=== PATIENT | male | born 1950 | race Caucasian/White ===

== ENCOUNTER 2020-12-27 18:19 | Observation (INO) | payer MEDICARE, OTHER ==
[2020-12-27 19:17] LABS: BASO % 0.9 % (0-2.0); EOS % 0.9 % (0-4.5); HEMATOCRIT 38.2 % (35.4-49); HEMOGLOBIN 13.2 GM/dL (11.7-16.9); LYMPH % 17.4 % (8-40); MCH 30.5 pg (25.7-33.7); MCHC 34.5 g/dl (32.0-35.9); MEAN CELL VOLUME 88.4 fl (80-96); MEAN PLT VOLUME 9.8 fl (7.5-11.1); MONO % 6.3 % (3.8-10.2); NEUT % 74.5 % (42.8-82.8); PLATELET COUNT 213 K/MM3 (134-434); RBC 4.32 M/mm3 (4.00-5.60); RDW 12.7 % (11.9-15.9)
[2020-12-27] MEDS ORDERED: dilTIAZem HCL 125 MG/25 ML - 25 ML VIAL ONE (19:41)
[2020-12-27 19:43] LABS: CHLORIDE 102 mmol/L (98-107); SODIUM 135 mmol/L (136-145)
[2020-12-27 19:45] LABS: ALBUMIN 4.1 g/dl (3.4-5.0); ANION GAP 10 MMOL/L (8-16); BLOOD UREA NITROGEN 14.4 mg/dL (7-18); CALCIUM 9.1 mg/dL (8.5-10.1); CO2 23 mmol/L (21-32); MAGNESIUM 1.8 mg/dL (1.8-2.4)
[2020-12-27 19:47] LABS: GLUCOSE,RANDOM 130 mg/dL (74-106)
[2020-12-27 19:49] LABS: CREATININE 1.1 mg/dL (0.55-1.3); PHOSPHOROUS 3.6 mg/dL (2.5-4.9); SGOT/AST 44 U/L (15-37); SGPT/ALT 36 U/L (13-61)
[2020-12-27 19:50] LABS: BILIRUBIN,TOTAL 0.9 mg/dL (0.2-1); TOT PROT 7.6 g/dl (6.4-8.2)
[2020-12-27 19:52] LABS: ALK PHOS 62 U/L (45-117)
[2020-12-27] MEDS ORDERED: dilTIAZem HCL 50 MG/10 ML - 10 ML VIAL IVPUSH ONE (20:11)
[2020-12-27] MEDS ORDERED: dilTIAZem HCL 30 MG TABLET ONE (20:30)
[2020-12-27] MEDS ORDERED: SODIUM CHLORIDE 1,000 ML IV STA (20:30)
[2020-12-27 20:53] LABS: INR 1.08 (0.83-1.09); PROTHROMBIN TIME (PATIENT) 13.3 SEC (9.7-13.0)
[2020-12-27 20:55] LABS: ACTIVATED PTT 33.4 SECONDS (25.2-36.5)
[2020-12-27] MEDS ORDERED: ENOXAPARIN NA (PORCINE) 40 MG/0.4 ML DISP.SYRIN SQ ONE (22:00)
[2020-12-27] MEDS ORDERED: ENOXAPARIN NA (PORCINE) 80 MG/0.8 ML DISP.SYRIN SQ ONE (22:04)
[2020-12-28 01:10] LABS: URINE APPEARANCE CLEAR; URINE BILIRUBIN NEGATIVE (NEGATIVE); URINE COLOR YELLOW; URINE GLUCOSE (UA) NEGATIVE (NEGATIVE); URINE KETONE NEGATIVE (NEGATIVE); URINE LEUK ESTERASE NEGATIVE (NEGATIVE); URINE NITRITE NEGATIVE (NEGATIVE); URINE PROTEIN NEGATIVE (NEGATIVE); URINE UROBILINOGEN 0.2 mg/dL (0.2-1.0)
[2020-12-28] MEDS ORDERED: dilTIAZem HCL 30 MG TABLET PO SCH (06:00)
[2020-12-28] MEDS ORDERED: dilTIAZem HCL 30 MG TABLET ONE ×2 (06:01→17:40)
[2020-12-28 06:46] LABS: HEMATOCRIT 37.6 % (35.4-49); HEMOGLOBIN 12.9 GM/dL (11.7-16.9); MCH 30.6 pg (25.7-33.7); MCHC 34.3 g/dl (32.0-35.9); MEAN CELL VOLUME 89.2 fl (80-96); MEAN PLT VOLUME 9.8 fl (7.5-11.1); PLATELET COUNT 218 K/MM3 (134-434); RBC 4.21 M/mm3 (4.00-5.60); RDW 12.9 % (11.9-15.9); WHITE BLOOD COUNT 4.4 K/mm3 (4.0-10.0)
[2020-12-28 07:10] LABS: ALBUMIN 3.5 g/dl (3.4-5.0); BLOOD UREA NITROGEN 13.8 mg/dL (7-18); CALCIUM 8.7 mg/dL (8.5-10.1); MAGNESIUM 2.2 mg/dL (1.8-2.4)
[2020-12-28 07:14] LABS: BILIRUBIN,TOTAL 1.1 mg/dL (0.2-1); CREATININE 0.9 mg/dL (0.55-1.3); PHOSPHOROUS 3.4 mg/dL (2.5-4.9)
[2020-12-28] MEDS: KCL 10 MEQ IVPB 10 MEQ/100 ML INFUS.BAG IVPB SCH ×2 (08:10→09:10)
[2020-12-28] MEDS: INSULIN SLIDING SCALE (NOVOLOG) 1 VIAL SQ SCH ×4 (08:30→22:23)
[2020-12-28] MEDS ORDERED: KCL 10 MEQ IVPB 10 MEQ/100 ML INFUS.BAG IVPB ONE ×2 (08:32→09:45)
[2020-12-28] MEDS ORDERED: ASPIRIN 81 MG CHEWABLE TABLETS ONE (09:46)
[2020-12-28] MEDS ORDERED: PANTOPRAZOLE 40 MG TABLET ONE (09:47)
[2020-12-28] MEDS ORDERED: ENOXAPARIN NA (PORCINE) 80 MG/0.8 ML DISP.SYRIN SQ ONE (09:47)
[2020-12-28] MEDS ORDERED: ASPIRIN 81 MG CHEWABLE TABLETS PO SCH (10:00)
[2020-12-28] MEDS ORDERED: PANTOPRAZOLE SODIUM 40 MG VIAL IVPUSH SCH (10:00)
[2020-12-28] MEDS: PANTOPRAZOLE 40 MG TABLET PO SCH (10:04)
[2020-12-28] MEDS: ENOXAPARIN NA (PORCINE) 80 MG/0.8 ML DISP.SYRIN SQ SCH ×2 (10:04→22:23)
[2020-12-28] MEDS: dilTIAZem HCL 30 MG TABLET PO SCH ×2 (12:18→18:02)
[2020-12-28] MEDS: ATORVASTATIN CA 40 MG TABLET (FP) PO SCH (22:23)
[2020-12-29 01:03] VITALS: BMI 30.9
[2020-12-29] MEDS: INSULIN SLIDING SCALE (NOVOLOG) 1 VIAL SQ SCH ×4 (06:30→21:24)
[2020-12-29 07:35] LABS: EOS % 3.5 % (0-4.5); HEMATOCRIT 38.7 % (35.4-49); HEMOGLOBIN 13.3 GM/dL (11.7-16.9); LYMPH % 42.9 % (8-40); MCH 30.8 pg (25.7-33.7); MCHC 34.4 g/dl (32.0-35.9); MEAN CELL VOLUME 89.6 fl (80-96); MONO % 8.4 % (3.8-10.2); NEUT % 44.2 % (42.8-82.8); PLATELET COUNT 199 K/MM3 (134-434); RBC 4.32 M/mm3 (4.00-5.60); RDW 12.6 % (11.9-15.9); WHITE BLOOD COUNT 4.8 K/mm3 (4.0-10.0)
[2020-12-29 07:51] LABS: ALBUMIN 3.6 g/dl (3.4-5.0); BLOOD UREA NITROGEN 16.1 mg/dL (7-18); CALCIUM 8.8 mg/dL (8.5-10.1); MAGNESIUM 2.1 mg/dL (1.8-2.4)
[2020-12-29 07:54] LABS: PHOSPHOROUS 3.5 mg/dL (2.5-4.9)
[2020-12-29 07:55] LABS: BILIRUBIN,TOTAL 1.3 mg/dL (0.2-1); TOT PROT 7.2 g/dl (6.4-8.2)
[2020-12-29] MEDS ORDERED: REGADENOSON 0.4 MG/5 ML PRE-FILLED SYRINGE IVPUSH ONE ×2 (09:45→09:50)
[2020-12-29] MEDS: PANTOPRAZOLE 40 MG TABLET PO SCH (12:08)
[2020-12-29] MEDS: APIXABAN 5 MG TABLET PO SCH ×2 (12:08→21:22)
[2020-12-29] MEDS: ATORVASTATIN CA 40 MG TABLET (FP) PO SCH (21:22)
[2020-12-29] MEDS ORDERED: INSULIN (NOVOLOG) ASPART 100 UNITS/ML 10ML VIAL ONE (21:24)
[2020-12-30] MEDS: INSULIN SLIDING SCALE (NOVOLOG) 1 VIAL SQ SCH ×3 (06:14→17:28)
[2020-12-30] MEDS: PANTOPRAZOLE 40 MG TABLET PO SCH (09:49)
[2020-12-30] MEDS: APIXABAN 5 MG TABLET PO SCH (09:49)
[2020-12-30] MEDS ORDERED: VALSARTAN 160 MG TABLET PO SCH (10:00)
[2020-12-30 20:57] VITALS: BP 140/79; PULSE 65; TEMP 98.3
[2020-12-30] MEDS: ATORVASTATIN CA 40 MG TABLET (FP) PO SCH (21:13)
== END 2020-12-30 21:55 | disposition short-term general hospital (02) ==
LOC: JER 18:19 → INTOOBSV 23:09 → JERBED 23:09 → UNDOADMOB 23:09 → JERBED 12-28 19:53 → J4W 12-28 19:53 → JERBED 12-29 09:25 → J4W 12-29 09:25
PROVIDERS: ADMIT Student in an Organized Health Care Education/Training Program; ATTEND Student in an Organized Health Care Education/Training Program
PROC: 3E023GC Introduction of Other Therapeutic Substance into Muscle, Percutaneous Approach (ICD-10-PCS; principal; 2020-12-29)
PROC: 3E033GC Introduction of Other Therapeutic Substance into Peripheral Vein, Percutaneous Approach (ICD-10-PCS; 2020-12-29)
PROC: 3E0337Z Introduction of Electrolytic and Water Balance Substance into Peripheral Vein, Percutaneous Approach (ICD-10-PCS; 2020-12-29)
DX: I48.91 Unspecified atrial fibrillation (principal); R00.2 Palpitations; K27.9 Peptic ulcer, site unspecified, unspecified as acute or chronic, without hemorrhage or perforation; R00.0 Tachycardia, unspecified; E78.5 Hyperlipidemia, unspecified; R07.9 Chest pain, unspecified; R20.8 Other disturbances of skin sensation; R10.13 Epigastric pain; E66.9 Obesity, unspecified; Z68.31 Body mass index [BMI] 31.0-31.9, adult; Z29.9 Encounter for prophylactic measures, unspecified; I10 Essential (primary) hypertension; E11.9 Type 2 diabetes mellitus without complications; Z91.011 Allergy to milk products; R42 Dizziness and giddiness; Z98.49 Cataract extraction status, unspecified eye; Z87.738 Personal history of other specified (corrected) congenital malformations of digestive system
CPT/HCPCS: 36415; 71045-TC-FY; 78452-TC; 80053; 80061; 81003; 82272; 82550; 82962; 83036; 83721; 83735; 84100; 84443; 84484; 85025; 85027; 85610; 85730; 93005; 93010; 93017; 93306-TC; 96361; 96365; 96372; 96375; 99285-25; A9502; C9803; G0378; J2785; U0003; U0005

== ENCOUNTER 2021-06-22 08:58 | Emergency (ER) | payer OTHER ==
[2021-06-22 09:15] VITALS: BMI 29.9
[2021-06-22] MEDS ORDERED: LIDOCAINE 5% TOPICAL PATCH TP ONE (12:51)
[2021-06-22] MEDS ORDERED: ACETAMINOPHEN 325 MG TABLET (FP) PO ONE (12:51)
[2021-06-22 13:00] LABS: BASO % 1.1 % (0-2.0); EOS % 1.1 % (0-4.5); HEMATOCRIT 40.4 % (35.4-49); HEMOGLOBIN 14.1 GM/dL (11.7-16.9); LYMPH % 31.7 % (8-40); MCH 30.4 pg (25.7-33.7); MCHC 34.9 g/dl (32.0-35.9); MEAN CELL VOLUME 87.1 fl (80-96); MEAN PLT VOLUME 8.6 fl (7.5-11.1); MONO % 5.8 % (3.8-10.2); NEUT % 60.3 % (42.8-82.8); PLATELET COUNT 234 10^3/uL (134-434); RBC 4.64 M/mm3 (4.00-5.60); WHITE BLOOD COUNT 4.6 K/mm3 (4.0-10.0)
[2021-06-22 13:06] LABS: INR 1.22 (0.83-1.09); PROTHROMBIN TIME (PATIENT) 14.3 SEC (9.7-13.0)
[2021-06-22 13:08] LABS: ACTIVATED PTT 39.7 SECONDS (25.2-36.5)
[2021-06-22] MEDS ORDERED: LIDOCAINE 5% TOPICAL PATCH ONE (13:12)
[2021-06-22] MEDS ORDERED: ACETAMINOPHEN 325 MG TABLET (FP) ONE (13:12)
[2021-06-22 13:23] LABS: CHLORIDE 102 mmol/L (98-107); SODIUM 135 mmol/L (136-145)
[2021-06-22 13:25] LABS: CALCIUM 9.5 mg/dL (8.5-10.1)
[2021-06-22 13:26] LABS: ALBUMIN 3.9 g/dl (3.4-5.0); ANION GAP 9 MMOL/L (8-16); BLOOD UREA NITROGEN 9.5 mg/dL (7-18); CO2 24 mmol/L (21-32); GLUCOSE,RANDOM 125 mg/dL (74-106)
[2021-06-22 13:29] LABS: CREATININE 0.9 mg/dL (0.55-1.3); SGOT/AST 22 U/L (15-37); SGPT/ALT 25 U/L (13-61)
[2021-06-22 13:31] VITALS: BP 166/84; PULSE 78; TEMP 98
[2021-06-22 13:31] LABS: BILIRUBIN,TOTAL 0.9 mg/dL (0.2-1); TOT PROT 8.5 g/dl (6.4-8.2)
[2021-06-22 13:32] LABS: ALK PHOS 75 U/L (45-117)
[2021-06-22] MEDS ORDERED: LIDOCAINE PATCH REMOVAL MC ONE (22:00)
== END 2021-06-22 14:44 | disposition home or self-care (01) ==
LOC: JER 08:58
DX: M54.50 Low back pain, unspecified (principal); X50.0XXA Overexertion from strenuous movement or load, initial encounter; Y93.E2 Activity, laundry
CPT/HCPCS: 36415; 71046-TC-FY; 80053; 84484; 85025; 85610; 85730; 93005; 93010; 99285-25

== ENCOUNTER 2021-11-12 11:52 | Observation (INO) | payer OTHER ==
[2021-11-12 12:31] VITALS: BMI 29.0
[2021-11-12] MEDS ORDERED: MECLIZINE HCL 25 MG TABLET (FP) PO ONE ×2 (13:22→20:16)
[2021-11-12] MEDS ORDERED: MECLIZINE HCL 25 MG TABLET (FP) ONE ×2 (14:09→20:27)
[2021-11-12 16:03] LABS: INR 1.3 (0.83-1.09)
[2021-11-12 16:05] LABS: BASO % 0.6 % (0-2.0); EOS % 2.2 % (0-4.5); HEMATOCRIT 37.4 % (35.4-49); HEMOGLOBIN 13.1 GM/dL (11.7-16.9); LYMPH % 25.5 % (8-40); MCH 30.5 pg (25.7-33.7); MEAN PLT VOLUME 9.5 fl (7.5-11.1); MONO % 6.5 % (3.8-10.2); NEUT % 65.2 % (42.8-82.8); PLATELET COUNT 186 10^3/uL (134-434); RBC 4.29 M/mm3 (4.00-5.60); RDW 13.1 % (11.9-15.9); WHITE BLOOD COUNT 4.4 K/mm3 (4.0-10.0)
[2021-11-12 16:06] LABS: ACTIVATED PTT 39.1 SECONDS (25.2-36.5)
[2021-11-12 16:13] LABS: CALCIUM 9.5 mg/dL (8.5-10.1)
[2021-11-12 16:14] LABS: BLOOD UREA NITROGEN 12.9 mg/dL (7-18)
[2021-11-12 16:16] LABS: CREATININE 0.8 mg/dL (0.55-1.3)
[2021-11-12 16:18] LABS: BILIRUBIN,TOTAL 0.9 mg/dL (0.2-1); TOT PROT 7.6 g/dl (6.4-8.2)
[2021-11-12 21:47] LABS: URINE APPEARANCE CLEAR; URINE BILIRUBIN NEGATIVE (NEGATIVE); URINE COLOR YELLOW; URINE GLUCOSE (UA) NEGATIVE (NEGATIVE); URINE KETONE NEGATIVE (NEGATIVE); URINE LEUK ESTERASE NEGATIVE (NEGATIVE); URINE NITRITE NEGATIVE (NEGATIVE); URINE PROTEIN NEGATIVE (NEGATIVE); URINE UROBILINOGEN 0.2 mg/dL (0.2-1.0)
[2021-11-12] MEDS ORDERED: MECLIZINE HCL 25 MG TABLET (FP) PO SCH (22:00)
[2021-11-12] MEDS ORDERED: APIXABAN 5 MG TABLET ONE (23:06)
[2021-11-12] MEDS: APIXABAN 5 MG TABLET PO SCH (23:15)
[2021-11-12] MEDS: SODIUM CHLORIDE 1,000 ML IV SCH (23:15)
[2021-11-13] MEDS: MECLIZINE HCL 25 MG TABLET (FP) PO SCH ×3 (06:06→21:42)
[2021-11-13 08:57] LABS: EOS % 3.8 % (0-4.5); HEMATOCRIT 36.8 % (35.4-49); HEMOGLOBIN 12.6 GM/dL (11.7-16.9); LYMPH % 36.5 % (8-40); MCH 29.9 pg (25.7-33.7); MCHC 34.1 g/dl (32.0-35.9); MEAN CELL VOLUME 87.6 fl (80-96); MEAN PLT VOLUME 9.5 fl (7.5-11.1); NEUT % 51.7 % (42.8-82.8); PLATELET COUNT 184 10^3/uL (134-434); RBC 4.19 M/mm3 (4.00-5.60); RDW 13.3 % (11.9-15.9); WHITE BLOOD COUNT 4.4 K/mm3 (4.0-10.0)
[2021-11-13 09:19] LABS: CALCIUM 8.9 mg/dL (8.5-10.1)
[2021-11-13 09:20] LABS: BLOOD UREA NITROGEN 9.5 mg/dL (7-18)
[2021-11-13 09:22] LABS: CREATININE 0.8 mg/dL (0.55-1.3)
[2021-11-13] MEDS: APIXABAN 5 MG TABLET PO SCH ×2 (09:30→21:42)
[2021-11-13] MEDS ORDERED: ACETAMINOPHEN 325 MG TABLET (FP) PO PRN (12:14)
[2021-11-13] MEDS: LIDOCAINE 5% TOPICAL PATCH TP SCH (12:33)
[2021-11-13] MEDS ORDERED: HYDROCHLOROTHIAZIDE 12.5 MG CAPSULE (FP) PO SCH (14:45)
[2021-11-13] MEDS ORDERED: LOSARTAN POTASSIUM 50 MG TABLET PO SCH (14:45)
[2021-11-13] MEDS: ASPIRIN 81 MG CHEWABLE TABLETS PO SCH (18:18)
[2021-11-13] MEDS ORDERED: amLODIPine BESYLATE 5 MG TABLET (FP) PO SCH (22:00)
[2021-11-13] MEDS ORDERED: ATORVASTATIN CA 20 MG TABLET (FP) PO SCH (22:00)
[2021-11-13] MEDS ORDERED: ATORVASTATIN CA 40 MG TABLET (FP) PO SCH (22:00)
[2021-11-13] MEDS ORDERED: LIDOCAINE PATCH REMOVAL MC SCH (22:00)
[2021-11-13] MEDS: SODIUM CHLORIDE 1,000 ML IV SCH (23:45)
[2021-11-14] MEDS: MECLIZINE HCL 25 MG TABLET (FP) PO SCH ×2 (06:43→13:14)
[2021-11-14] MEDS ORDERED: metFORMIN HCL 500 MG TABLET (FP) PO SCH (07:00)
[2021-11-14 07:32] LABS: HEMATOCRIT 36.1 % (35.4-49); HEMOGLOBIN 12.2 GM/dL (11.7-16.9); MCH 29.8 pg (25.7-33.7); MCHC 33.9 g/dl (32.0-35.9); MEAN CELL VOLUME 87.8 fl (80-96); MEAN PLT VOLUME 9.3 fl (7.5-11.1); PLATELET COUNT 178 10^3/uL (134-434); RBC 4.11 M/mm3 (4.00-5.60); RDW 13.2 % (11.9-15.9); WHITE BLOOD COUNT 4.4 K/mm3 (4.0-10.0)
[2021-11-14 08:06] LABS: BLOOD UREA NITROGEN 8.9 mg/dL (7-18)
[2021-11-14 08:07] LABS: CALCIUM 8.2 mg/dL (8.5-10.1)
[2021-11-14 08:08] LABS: ALBUMIN 3.3 g/dl (3.4-5.0)
[2021-11-14 08:09] LABS: CREATININE 0.8 mg/dL (0.55-1.3)
[2021-11-14 08:10] LABS: BILIRUBIN,TOTAL 1.2 mg/dL (0.2-1); TOT PROT 6.6 g/dl (6.4-8.2)
[2021-11-14] MEDS: LIDOCAINE 5% TOPICAL PATCH TP SCH (09:56)
[2021-11-14] MEDS: ASPIRIN 81 MG CHEWABLE TABLETS PO SCH (09:56)
[2021-11-14] MEDS: APIXABAN 5 MG TABLET PO SCH (09:56)
[2021-11-14 10:51] VITALS: BP 129/74; PULSE 71; TEMP 98.2
== END 2021-11-14 15:32 | disposition home or self-care (01) ==
LOC: JER 11:52 → JERBED 19:23 → J4S 11-13 00:58
PROVIDERS: ADMIT Internal Medicine; ATTEND Internal Medicine
PROC: 3E0337Z Introduction of Electrolytic and Water Balance Substance into Peripheral Vein, Percutaneous Approach (ICD-10-PCS; principal; 2021-11-12)
DX: R42 Dizziness and giddiness (principal); I10 Essential (primary) hypertension; E78.5 Hyperlipidemia, unspecified; E11.9 Type 2 diabetes mellitus without complications; K27.9 Peptic ulcer, site unspecified, unspecified as acute or chronic, without hemorrhage or perforation; I48.91 Unspecified atrial fibrillation; Z79.01 Long term (current) use of anticoagulants; R00.2 Palpitations; R51.9 Headache, unspecified; R30.0 Dysuria; I73.9 Peripheral vascular disease, unspecified; I25.10 Atherosclerotic heart disease of native coronary artery without angina pectoris
CPT/HCPCS: 36415; 70450-TC; 70498-TC; 70551-TC; 71275-TC; 80048; 80053; 80061; 81003; 82962; 83036; 84484; 85025; 85027; 85610; 85730; 86850; 86900; 86901; 93005; 93010; 96360; 97116-GP; 97161-GP; 99285-25; C9803; G0378; Q9967; U0003; U0005

== ENCOUNTER 2022-02-03 15:11 | Emergency (ER) | payer OTHER ==
[2022-02-03 15:17] VITALS: BMI 29.0
[2022-02-03 17:07] LABS: BASO % 0.8 % (0-2.0); EOS % 3.3 % (0-4.5); HEMATOCRIT 37.7 % (35.4-49); LYMPH % 28.9 % (8-40); MCH 29.9 pg (25.7-33.7); MCHC 34.5 g/dl (32.0-35.9); MEAN CELL VOLUME 86.6 fl (80-96); MEAN PLT VOLUME 9.3 fl (7.5-11.1); MONO % 9.5 % (3.8-10.2); NEUT % 57.5 % (42.8-82.8); PLATELET COUNT 188 10^3/uL (134-434); RBC 4.35 M/mm3 (4.00-5.60); WHITE BLOOD COUNT 4.8 K/mm3 (4.0-10.0)
[2022-02-03 17:19] LABS: CALCIUM 9.3 mg/dL (8.5-10.1)
[2022-02-03 17:21] LABS: ALBUMIN 4.2 g/dl (3.4-5.0); BLOOD UREA NITROGEN 9.5 mg/dL (7-18)
[2022-02-03 17:23] LABS: CREATININE 0.9 mg/dL (0.55-1.3)
[2022-02-03 17:25] LABS: BILIRUBIN,TOTAL 1.3 mg/dL (0.2-1); TOT PROT 8.1 g/dl (6.4-8.2)
[2022-02-03 17:55] VITALS: BP 166/82; PULSE 60; TEMP 98
== END 2022-02-03 17:55 | disposition home or self-care (01) ==
LOC: JER 15:11
DX: I10 Essential (primary) hypertension (principal)
CPT/HCPCS: 36415; 80053; 85025; 86850; 86900; 86901; 93005; 93010; 99284-25